=== PATIENT | female | born 1945 | race Caucasian/White ===

== ENCOUNTER → 2019-07-21 13:37 | Outpatient (CLI) | payer MEDICARE, SELFPAY ==
--- NOTE | ~2019-07-21 | CT_ITS ---
EXAMINATION: CT abdomen pelvis wo/w con EXAM DATE: 07/21/2019 14:23 INDICATION: Benign microscopic hematuria. TECHNIQUE: Spiral CT of the abdomen and pelvis was performed without contrast. The patient was then injected with small bolus intravenous Omnipaque 350, followed by delay of approximately 10 minutes to allow collecting system to opacify. A post contrast scan abdomen and pelvis was performed during inj ection of remaining contrast. A total of 130 cc intravenous contrast was administered. The dose-rick th product (DLP) for this examination was 1302.06 mGy-cm. The exposure was tailored according to pat ient size (auto mA exposure control), and iterative reconstruction (ASIR) was used as additional dose reduction technique. There is no prior study for comparison. FINDINGS: There is no hydronephrosis or nephrolithiasis. The kidneys enhance symmetrically. There are no suspicious renal lesions. The calyces and opacified portions of ureters are unremarkable, wi thout filling defects or focal suspicious strictures. The bladder is unremarkable. 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 The uterus is not identified and has likely been surgically resec nihsant. The liver, spleen, adrenal glands and pancreas are unremarkable. Gallbladder is unremarkable. No bi liary obstruction. There is no retroperitoneal or pelvic lymphadenopathy. There is moderate scatte red arteriosclerotic disease. The appendix is not positively visualized. There is no pericecal inflammatory change to suggest appe ndicitis. There is small sliding gastroesophageal hiatal hernia. There is moderate amount of colon ic stool. There is moderate sigmoid predominant colonic diverticulosis. There is no adjacent inflamm atory change to suggest diverticulitis. No free intraperitoneal gas. The heart is normal in size. There are no pericardial or pleural effusions. The lung bases are unremarkable. There are no osteo blastic or osteolytic lesions identified. IMPRESSION: 1. No suspicious genitourinary findings. 2. Moderate sigmoid predominant colonic diverticulosis. 3. Small hiatal hernia. Reviewed, dictated and finalized at location A.
[2019-07-21 14:00] LABS: Estimated Glomerular Filt Rate > 60
== END ==
PROVIDERS: Visit Provider Urology
DX: R31.1 Benign essential microscopic hematuria (principal); K57.30 Diverticulosis of large intestine without perforation or abscess without bleeding; K44.9 Diaphragmatic hernia without obstruction or gangrene
CPT/HCPCS: 36415; 74178; Q9967

== ENCOUNTER 2023-03-11 01:16 | Day surgery (SDC) | payer MEDICARE, SELFPAY ==
[2023-02-21 14:21] VITALS: BMI 22.9
--- NOTE | 2023-03-08 09:00 | SUR.PREOP ---
Patient called regarding upcoming procedure. Message let on jrery'ts voicemail regarding preop instructions, appointment times, and procedure prep.
--- NOTE | 2023-03-08 14:51 | PM.HPGS ---
History of Present Illness History of Present Illness Consent: Risks, benefits, and alternatives have been discussed and questions answered. Patient agrees to proceed with procedure. Chief complaint: history of colon polyps Narrative: Jerilyn Oviedo is a 77 year old female referred for colon cancer screening. She has history of polyps. Review of Systems Review of Systems: All systems reviewed & are unremarkable except as noted in HPI and below PMFSH Social History Social History Smoking packs per day: 1 Smoking cigarettes per day: 20.0 Years smoked: 55 Smoking pack-years: 55.00 Smoking status: Current every day smoker Tobacco type: cigarettes Living arrangements: with family Meds Home Medications and Allergies Home Medications Medication Instructions Recorded Confirmed Type atorvastatin 10 mg tablet 10 mg PO DAILY 02/21/23 03/11/23 History ezetimibe 10 mg tablet 10 mg PO DAILY 02/21/23 03/11/23 History Allergies Allergy/AdvReac Type Severity Reaction Status Date / Time dextromethorphan Allergy Chest Pain Verified 03/11/23 09:08 doxylamine Allergy Chest Pain Verified 03/11/23 09:08 pseudoephedrine Allergy Chest Pain Verified 03/11/23 09:08 Exam Const: General: alert Orientation/consciousness: patient oriented x3 Resp: Auscultation: clear to auscultation bilaterally Cardio: Rhythm: regular rhythm GI: GI Palp: Yes Soft to palpation and No Tenderness to palpation present (GI) Neuro: General: patient oriented x3 Assessment and Plan Assessment and plan (1) Colon cancer screening: Code(s): Z12.11 - Encounter for screening for malignant neoplasm of colon Status: Acute Assessment and Plan: Colonoscopy with possible biopsy or polypectomy or cautery or injection of substances.
[2023-03-11 09:00] VITALS: BP 122/61; PULSE 65; RESP 16; TEMP 36.1; O2SAT 100; BMI 22.9
[2023-03-11] MEDS: LACTATED RINGERS 1,000 ML 150 ML IV CONT (09:27)
--- NOTE | 2023-03-11 10:19 | P.PNAN_ITS ---
Anes - Initial Pre Proc Eval Procedure: Operation Date: 03/11/23 10:30 Proposed Procedures p Colonoscopy - Malachi Dao MD Date/Time: 03/11/23 10:19 Surgeon: Malachi Dao MD Pre Op Diagnosis: history of colon polyps Patient Data Age: 77 Gender: F Height: 1.6 m Weight: 58.7 kg Last Vital Signs Temp 97.0 F L 03/11/23 09:00 Pulse 65 03/11/23 09:00 Resp 16 03/11/23 09:00 BP 122/61 03/11/23 09:00 Pulse Ox 100 03/11/23 09:00 O2 Del Method Room Air 03/11/23 09:00 Allergies Allergy/AdvReac Type Severity Reaction Status Date / Time dextromethorphan Allergy Chest Pain Verified 03/11/23 09:08 doxylamine Allergy Chest Pain Verified 03/11/23 09:08 pseudoephedrine Allergy Chest Pain Verified 03/11/23 09:08 Home Medications Medication Instructions Recorded Confirmed Type atorvastatin 10 mg tablet 10 mg PO DAILY 02/21/23 03/11/23 History ezetimibe 10 mg tablet 10 mg PO DAILY 02/21/23 03/11/23 History Patient hx anesthesia problems: none Family hx anesthesia problems: none Results Review: All pre-operative results and documents have been reviewed as part of the pre- operative evaluation. [facility] Social History Social History Smoking packs per day: 1 Smoking cigarettes per day: 20.0 Years smoked: 55 Smoking pack-years: 55.00 Smoking status: Current every day smoker Tobacco type: cigarettes Living arrangements: with family Anes - Eval Final PreProcedure Day of Procedure 03/11/23 10:19 Patient weight: normal Heart: regular rate and rhythm Lungs: clear to auscultation Airway: Mallampati scale class II Neurological: alert and oriented Last oral intake: >/= 8 hours ASA classification: II Emergent: no Anesthetic plan: proceed Anesthesia type and monitoring: general GIVS and standard monitoring Results Review: All pre-operative results and documents have been reviewed as part of the pre-op erative evaluation. Informed Consent: The patient's anesthetic plan and its attendant risks and benefits were discussed with the patient/family/POA. Questions were solicited and answers provided to the satisfaction of the patient/family/POA.
[2023-03-11 10:42] VITALS: BP 102/47; PULSE 72; RESP 23; O2SAT 97
[2023-03-11 10:52] VITALS: BP 95/68; PULSE 72; RESP 22; O2SAT 100
[2023-03-11 11:02] VITALS: BP 114/63; PULSE 65; RESP 20; O2SAT 100
== END 2023-03-11 11:17 | disposition home or self-care (01) ==
PROVIDERS: PCP Nurse Practitioner Family; Visit Provider Internal Medicine Gastroenterology
PROC: 0DJD8ZZ Inspection of Lower Intestinal Tract, Via Natural or Artificial Opening Endoscopic (ICD-10-PCS; CPT 45378; principal; 2023-03-11 10:30)
DX: Z12.11 Encounter for screening for malignant neoplasm of colon (principal); K57.30 Diverticulosis of large intestine without perforation or abscess without bleeding; F17.210 Nicotine dependence, cigarettes, uncomplicated; Z86.010 Personal history of colon polyps
CPT/HCPCS: G0105; J2704; J7120

== ENCOUNTER 2024-07-14 08:46 | Outpatient (CLI) | payer MEDICARE, SELFPAY ==
--- NOTE | ~2024-07-14 | CT_ITS ---
Procedure: CT shoulder LT wo con Ordering provider: Bruna Levi History: . Pain in L shoulder . Comparison: None. Technique: Thin slice axial CT of the No IV contrast was given. Sagittal and coronal reformatted imag es were also obtained and reviewed. Radiation reduction technique utilized. The dose-length product w as 265.23 mGy-cm. Findings: BONES: Comminuted fracture of the left humeral head with involvement of the surgical neck. JOINT SPACES: Normal. SOFT TISSUES: Hematoma is seen around the fracture area. IMPRESSION: Comminuted fracture involving the surgical neck of the left humerus and extending to the humeral head with displacement of bony fragments. Surrounding hematoma is noted. Reviewed, dictated and finalized at location A. IMPRESSION: Comminuted fracture involving the surgical neck of the left humerus and extendi ng to the humeral head with displacement of bony fragments. Surrounding hematom a is noted.
== END 2024-07-14 08:47 | disposition home or self-care (01) ==
DX: S42.212A Unspecified displaced fracture of surgical neck of left humerus, initial encounter for closed fracture (principal); X58.XXXA Exposure to other specified factors, initial encounter
CPT/HCPCS: 73200